=== PATIENT | male | born 1965 | race Caucasian/White ===

== ENCOUNTER 2017-09-14 15:55 | Day surgery (SDC) | payer MEDICAID ==
[2017-09-14] VITALS (16 sets, daily range): BP systolic 86–136; BP diastolic 34–85
[~2017-09-14] VITALS: Ht 167.6 cm; Wt 40.8 kg
[~2017-09-14 15:55] MED LIST: DIPH25CA83 PO; HYDR-3972 PO; PROC-8 PO
[2017-09-14] MEDS ORDERED: LIDOcaine 1%/PF (10mg/ml) 5ml vial ONE (16:00)
[2017-09-14] MEDS ORDERED: iohexol 300 MG/1 ML 50ml polymer ONE (16:00)
[2017-09-14] MEDS ORDERED: HYDROmorphone 1 mg/ml syringe ONE (16:21)
[2017-09-14] MEDS ORDERED: levoFLOXACIN-Levaquin 500mg/D5 100 ML IV ONE (16:25)
[2017-09-14] MEDS ORDERED: normal saline 1000ml 1,000 ML IV SCH (16:25)
[2017-09-14] MEDS ORDERED: HYDROmorphone 1 mg/ml syringe IV ONE (16:30)
[2017-09-14] MEDS ORDERED: fentaNYL/PF 50MCG/1 ML 2ML syringe ONE (16:33)
[2017-09-14] MEDS ORDERED: midazolam 2 mg/2 ml injection ONE (16:35)
[2017-09-14] MEDS ORDERED: LOPE1TAB46 PO (17:15)
[2017-09-14] MEDS ORDERED: DIPH-423 PO (17:15)
[2017-09-14] MEDS ORDERED: ONDA8TAB9 SL (17:15)
[2017-09-14] MEDS ORDERED: MORP60TA66 PO (17:15)
[2017-09-14] MEDS ORDERED: ACET1TAB12 PO (17:15)
[2017-09-14] MEDS ORDERED: PROC-8 PO (17:15)
[2017-09-14 17:44] LABS: CLARITY,URINE CLOUDY (Clear); COLOR,URINE YELLOW (Yellow); GLUCOSE, URINE NEGATIVE (Neg); KETONES,URINE NEGATIVE (Neg); LEUKOCYTE ESTERASE ,URINE LARGE (Neg); NITRITES, URINE POSITIVE (Neg); OCCULT BLOOD,URINE LARGE (Neg); PH,URINE 6.5 (4.8-8.0); PROTEIN,URINE >=300 mg/dl (Neg); UROBILINOGEN,URINE 0.2 E.U/dL (0.2-1.0)
[2017-09-14 17:59] LABS: UA COLLECTION TYPE OTHER
[2017-09-14 18:01] LABS: BACTERIA,URINE FEW /HPF (Neg); MUCUS STRANDS NONE SEEN /LPF (Neg); RBC,URINE 0-2 /HPF (0-2); SQUAMOUS EPITHELIAL CELL,UR NONE SEEN /LPF (FEW); WBC,URINE TNTC /HPF (0-4)
[2017-09-14] MEDS ORDERED: heparin sodium, porcine/PF 100unit/ml 5ML syringe IV ONE (18:20)
[2017-09-15] MEDS ORDERED: heparin sodium, porcine/PF 100unit/ml 5ML syringe IV SCH
== END 2017-09-14 18:40 | disposition home or self-care (01) ==
LOC: SSTAY O 15:55
PROVIDERS: ATTEND Radiology Diagnostic Radiology
DX: T83.022A Displacement of nephrostomy catheter, initial encounter (principal); N32.89 Other specified disorders of bladder; F17.210 Nicotine dependence, cigarettes, uncomplicated; F10.21 Alcohol dependence, in remission; N13.30 Unspecified hydronephrosis; F12.90 Cannabis use, unspecified, uncomplicated; Z88.0 Allergy status to penicillin; Z85.51 Personal history of malignant neoplasm of bladder; Z91.018 Allergy to other foods; Z98.890 Other specified postprocedural states; Z79.899 Other long term (current) drug therapy; Y83.8 Other surgical procedures as the cause of abnormal reaction of the patient, or of later complication, without mention of misadventure at the time of the procedure; Y92.9 Unspecified place or not applicable
CPT/HCPCS: 50432; 81001; 87077; 87088; 87186; A6257; C1769; J1170; J1642; J1956; J2001; J2250; J3010; J7030; Q9967; 99152; 99153; A4620

== ENCOUNTER 2017-09-18 10:02 | Outpatient (CLI) | payer MEDICAID ==
[~2017-09-18 10:02] MED LIST changes: +ACET1TAB12 PO; +DIPH-423 PO; -DIPH25CA83 PO; -HYDR-3972 PO; +LOPE1TAB46 PO; +MORP60TA66 PO; +ONDA8TAB9 SL
== END 2017-09-18 23:59 | disposition home or self-care (01) ==
LOC: VAS 10:02
PROVIDERS: ATTEND Nurse Practitioner
DX: M79.662 Pain in left lower leg (principal); M79.89 Other specified soft tissue disorders; R60.0 Localized edema
CPT/HCPCS: 93971